=== PATIENT | female | born 1970 | race Caucasian/White ===

== ENCOUNTER 2022-10-07 15:15 | Emergency (ER) | payer BC ==
[~2022-10-07] VITALS: Ht 165.1 cm; Wt 74.8 kg
--- NOTE | 2022-10-07 15:40 | NUR ---
PATIENT CAME WITH COMPLAINTS OF RIGHT TEMPORAL LACERATION AFTER A FALL.ALERT AND ORIENTED.PATIENT CONNECTED TO [employer]SULTANT AND PULSE OXYMETER.BREATHING ON ROOM AIR WITH OUT ANY DISTRESS.ALL SAFTEY PRECAUTIONS AT BED SIDE.AWAITING MD FOR EVAL.
[2022-10-07] MEDS ORDERED: LIDOCAINE 1% INJ 50 ML MDV IJ ONE (16:06)
--- NOTE | 2022-10-07 17:24 | NUR ---
DR DENIS AT BED SIDE FIR SUTURING
[2022-10-07] MEDS: BACI/NEOM/POLY B OINT PKT 1 UDPKT PACKET TP ONE (17:26)
[2022-10-07] MEDS: LIDOCAINE HCL/PF 1% 30 ML VIAL TP ONE (17:28)
--- NOTE | 2022-10-07 17:36 | NUR ---
PT TAKEN TO CT VIA [facility]LE[facility]
--- NOTE | 2022-10-07 17:43 | NUR ---
PATIENT WENT TO RADILOGY
[2022-10-07 19:05] VITALS: BP 108/73; TEMP 98.1; O2SAT 98
--- NOTE | 2022-10-07 19:05 | NUR ---
Patient discharged to home in stable condition. Written and verbal after care instructions given. Patient verbalizes understanding of instruction.
== END 2022-10-07 19:06 | disposition home or self-care (01) ==
LOC: ER 15:20
DX: S01.01XA Laceration without foreign body of scalp, initial encounter (principal); W01.0XXA Fall on same level from slipping, tripping and stumbling without subsequent striking against object, initial encounter; Y93.89 Activity, other specified; Y92.89 Other specified places as the place of occurrence of the external cause; Y99.8 Other external cause status
CPT/HCPCS: 12001; 70450; 99284; A6403; J3490